=== PATIENT | female | born 1965 | race Caucasian/White ===

== ENCOUNTER 2018-07-23 16:04 | Emergency (ER) | payer OTHER ==
[2018-07-23] MEDS: KETOROLAC 30 MG INJ IM (17:50)
== END 2018-07-23 19:16 | disposition home or self-care (01) ==
LOC: FTE 16:04
DX: M25.562 Pain in left knee (principal); E11.9 Type 2 diabetes mellitus without complications; I10 Essential (primary) hypertension; J45.909 Unspecified asthma, uncomplicated
CPT/HCPCS: 73562; 81025; 96372; 99284-25